=== PATIENT | male | born 1990 | race Caucasian/White ===

== ENCOUNTER 2020-12-07 10:33 | Inpatient (IN) | payer SELFPAY ==
[2020-12-07] VITALS (8 sets, daily range): BP systolic 118–150; BP diastolic 83–103; PULSE 61–95; RESP 16; TEMP 36.5–36.7; O2SAT 96–99; BMI 22.9
--- NOTE | 2020-12-07 11:33 | CT_ITS ---
WS: [id number] CT ABDOMEN AND PELVIS WITH CONTRAST HISTORY: abdominal pain. Bloody diarrhea TECHNIQUE: Imaging performed of the abdomen and pelvis with IV contrast. Single phase imaging of the abdomen. Coronal and sagittal reformats are submitted. All CT scans at [facility] use at least one of these dose optimization techniques: automated exposure control; mA and/or kV adjustment per patient size (includes targeted exams where dose is matched to clinical indication); or iterativ e reconstruction. IV CONTRAST: Omnipaque 300; 95 mL IV. Oral contrast: No DLP: 1146.33 mGy.cm COMPARISON: 05/13/2019 Lower thorax: Lung bases are clear. Heart is normal size. No hiatal hernia. Liver/biliary system: Marked hepatic steatosis. The liver is also mildly enlarged. No mass or bile du ct dilatation. Gallbladder: Normal. No gallstones or wall thickening. No pericholecystic fluid. Pancreas: Normal. Spleen: Normal. Adrenal glands: Normal. Right kidney: Normal. Left kidney: Normal. Aorta: Normal. Lymphadenopathy: None. Free fluid: None. GI tract: Moderate mucosal edema involving the ascending colon. Sparing of the transverse colon. Avtar a begins again the splenic flexure to the sigmoid. There is increase fluid in the rectum. No small todd wel obstruction. The appendix is partially visualized and normal. Terminal ileum is slightly narrowed and slightly hyperemic. New finding since 05/13/2019. Abdominal wall: Unremarkable abdominal wall. No hernia. Pelvis: Normally distended bladder. No free fluid in the pelvis. No adenopathy. Bones: Unremarkable. CT/CT abdomen pelvis w con* [id number] IMPRESSION: 1. Moderate mucosal thickening involving the ascending and descending colon wi th increased fluid in the rectum and mild hyperemia of the terminal ileum. Infl ammatory bowel disease such as Crohn's should be considered. 2. Diffuse hepatic steatosis has progressed since 05/13/2019. 3. No GI tract obstruction or free air. 4. Incompletely visualized appendix.
[2020-12-07] MEDS: iohexol 300 mg/mL 100 mL Btl IV (11:45)
[2020-12-07 11:47] LABS: Basophils # 0.1 10^3/uL (0.0-0.1); Basophils % 1.1 %; Eosinophils % 0.9 %; Hematocrit 45.7 % (42.0-52.0); Hemoglobin 16.1 g/dL (11.7-16.6); Lymphocytes # 1.8 10^3/uL (0.8-4.8); Lymphocytes % 39.9 %; Mean Corpuscular HGB Conc 35.2 g/dL (30.0-36.0); Mean Corpuscular Hemoglobin 35.2 pg (28.0-34.0); Mean Corpuscular Volume 99.8 fL (80-94); Mean Platelet Volume 11.7 fL (7.4-10.4); Monocytes # 0.3 10^3/uL (0.2-0.9); Monocytes % 7.4 %; Neutrophils # 2.24 10^3/uL (1.8-7.7); Neutrophils % 50.5 %; Nucleated Red Blood Cells % 0 %; Platelet Count 163 10^3/cmm (130-400); Red Blood Count 4.58 10^6/uL (4.1-5.3); Red Cell Distribution Width 12.8 % (12.1-15.1); White Blood Count 4.4 10^3/uL (4.0-10.0)
[2020-12-07] MEDS: ondansetron 2 mg/ML SDV 2 mL 4 MG IVP (12:03)
[2020-12-07] MEDS: ketorolac 30 mg/mL INJ 15 MG IVP (12:06)
--- NOTE | 2020-12-07 12:06 | ED_ITS ---
HPI - GI Bleed General: Chief complaint: GI Bleed Stated complaint: ABD PAIN/blood in stool Time Seen by Provider: 12/07/20 11:10 History of Present Illness: HPI Narrative: The patient is a 30-year-old male who comes to the ER complaining of abdominal pain and some blood in his stool. He says approximately a month ago he thinks he had Covid and has not felt well since. He has had a 20 pound weight loss since then due to feelings of bloated abdomen, he does not feel hungry and he has had chronic abdominal pain. Over the past few days the pain has worsened and he says it is worst in his left lower quadrant. Denies history of hemorrhoids. He says he has had some constipated stools and took MiraLAX last night to help however it has not relieved his pain. He also admits nausea but no vomiting. Pain Consistency: constant Severity: moderate Relieving factors: none Associated symptoms: Reports abdominal pain and nausea; Denies headache(s), rash or vomiting Review of Systems General: Reports: 10 or more systems reviewed and unremarkable except in HPI and below Const: Denies: fatigue Eyes: Denies: change in vision, blurry vision or eye redness ENMT: Denies: throat pain, swelling of lips/tongue, ear or mastoid pain or nasal congestion Card: Denies: chest pain, palpitations, irregular heart rhythm, edema, dyspnea on exertion or orthopnea Resp: Denies: dyspnea, productive cough or non-productive cough GI: Reports: abdominal pain, nausea and constipation; Denies: vomiting or diarrhea : Denies: flank pain, urinary frequency or urinary urgency Musc: Denies: neck pain, back pain, extremity pain, joint pain, joint redness, limited range of motion or muscle weakness Skin/Breast: Denies: rash, pruritus, erythema, skin pain or skin tenderness Neuro: Denies: headache(s), numbness in extremities, weakness in extremities, sensory changes, difficulty walking, dizziness, confusion or Slurred speech present Psych: Denies: anxiety or depression Endo: Denies: polyuria All/Imm: Denies: urticaria, throat swelling or tongue swelling PFSH ED PFSH: Medical History Daily consumption of alcohol Dermatitis Smoking addiction Surgical History No significant past surgical history Family History Grandmother Hx of cholecystectomy Social History Smoking and tobacco status: current every day smoker cigarettes Packs smoked per day: 1 Alcohol intake: current Alcohol intake frequency: 0-2 Drinks per Day Substance/Drug Use: never Lives independently: Yes Marital status: Current occupational status: employed Physical Exam 2 Const: COMMON NORMALS: no acute distress, average body habitus, patient oriented x3, no limitations, healthy appearing, alert and well nourished GENERAL APPEARANCE: cooperative, comfortable, well kempt and well developed ORIENTATION/CONSCIOUSNESS: Yes awake, Yes oriented to person, Yes oriented to place and Yes oriented to time HENMT: COMMON NORMALS: normocephalic, external ears normal and Normal external nose present HEAD & SCALP: normal to inspection and normocephalic NOSE: Normal external nose present EXTERNAL EAR: Yes external ears normal MOUTH: Normal oral and palatal mucosa present THROAT: posterior oropharynx normal Eye: COMMON NORMALS: Equal, round and reactive pupils present and EOMs intact bilaterally GENERAL EYE: appearance normal, both eyes and all related structures PUPIL: Yes Equal, round and reactive pupils present Neck/C-Spine: COMMON NORMALS: full ROM, no lymphadenopathy, no meningeal signs and no JVD GENERAL: Yes normal visual inspection Lymph: LYMPHATIC: no lymphadenopathy noted Chest: COMMONS NORMALS: normal inspection of the chest and normal palpation of entire chest wall Resp: COMMON NORMALS: normal respiratory effort, No retractions, No use of accessory muscles, clear to auscultation bilaterally and percussion normal EFFORT & INSPECTION: Yes able to speak in complete sentences AUSCULTATION: clear to auscultation bilaterally PERCUSSION: percussion normal Cardio: COMMON NORMALS: no JVD, regular rate, regular rhythm, S1 normal heart sound present, S2 normal heart sound present and Peripheral pulses 2+ throughout RATE: regular rate RHYTHM: regular rhythm HEART SOUNDS: S1 normal heart sound present and S2 normal heart sound present PERIPHERAL PULSES: Peripheral pulses 2+ throughout GI: COMMON NORMALS: Normal to inspection, nondistended, normoactive bowel sounds present, Soft to palpation and no masses INSPECTION: Yes normal to inspection PALPATION: Yes Soft to palpation and Yes Tenderness to palpation present (GI) OTHER: He has tenderness in all abdominal quadrants. It is worst in the left lower quadrant. Soft. No rebound tenderness. : COMMON NORMALS: Yes no CVA tenderness BLADDER/KIDNEY EXAM: Yes no CVA tenderness Back/Pelvis: COMMON NORMALS: no CVA tenderness, thoracic and lumbar spine normal to inspection, no thoracic nor lumbar tenderness and thoraco-lumbar ROM normal Extremity: COMMON NORMALS: normal to inspection, full ROM, capillary refill normal, no joint enlargement and no pedal edema GENERAL: Yes normal exam except as noted Neuro: COMMON NORMALS: patient oriented x3, CN's II-XII intact bilaterally, moves all extremities, no focal motor deficits, no sensory deficits noted and gait normal SENSORIUM/ORIENTATION: Yes alert, Yes oriented to person, Yes oriented to place and Yes oriented to time MENINGEAL SIGNS: Yes no meningeal signs Psych: COMMON NORMALS: mental status grossly normal, Normal thought process present, cooperative, normal affect and speech normal APPEARANCE: Yes well kempt ATTITUDE: Yes calm SPEECH: Yes normal speech THOUGHT PROCESS: Normal thought process present Skin: COMMON NORMALS: no rashes or lesions noted GENERAL SKIN EXAM: no rashes or lesions noted Course Vital Signs: Vital signs: Vital Signs Temperature 97.7 F 12/07/20 10:47 Pulse Rate 61 12/07/20 15:10 Respiratory Rate 16 12/07/20 10:47 Blood Pressure 118/83 12/07/20 15:10 Pulse Oximetry 98 12/07/20 15:10 MDM - GI Bleed MDM Narrative: Medical decision making narrative: Patient came to the ER complaining of severe abdominal pain. CT shows moderate thickening of the ascending and descending colon as well as hyperemia in the distal ileum. It is not diagnostic but suggestive of Crohn's disease. He does have a family history of Crohn's disease. Also his LFTs are elevated. He was given Cipro, Flagyl, and started with [address]iscuss[address] with Dr. Soto who recommended against scoping this patient with an acute infection and follow-up outpatient. Discussed with Dr. Mehta who accepts for observation. Lab Data: Labs: Lab Results 12/07/20 12/07/20 12/07/20 Range/Units 11:37 11:37 11:37 WBC 4.4 (4.0-10.0) 10^3/ uL RBC 4.58 (4.1-5.3) 10^6/u L Hgb 16.1 (11.7-16.6) g/dL Hct 45.7 (42.0-52.0) % MCV 99.8 H (80-94) fL MCH 35.2 H (28.0-34.0) pg MCHC 35.2 (30.0-36.0) g/dL RDW 12.8 (12.1-15.1) % Plt Count 163 (130-400) 10^3/c mm MPV 11.7 H (7.4-10.4) fL Neut % (Auto) 50.5 % Lymph % (Auto) 39.9 % Grimes % (Auto) 7.4 % Eos % (Auto) 0.9 % Baso % (Auto) 1.1 % Neut # (Auto) 2.24 (1.8-7.7) 10^3/u L Lymph # (Auto) 1.8 (0.8-4.8) 10^3/u L Grimes # (Auto) 0.3 (0.2-0.9) 10^3/u L Eos # (Auto) 0.0 (0.0-0.8) 10^3/u L Baso # (Auto) 0.1 (0.0-0.1) 10^3/u L Nucleated RBC % (a uto) 0 % Nucleated RBCs # 0.0 /100WBC ESR (0-10) mm/hr Sodium 132 L (136-145) mmol/L Potassium 3.9 (3.5-5.1) mmol/L Chloride 93 L (98-107) mmol/L Carbon Dioxide 27 (22-29) mmol/L Anion Gap 15.9 (5-19) BUN 13 (6-20) mg/dL Creatinine 1.0 (0.7-1.2) mg/dL GFR Calculation 86.6 L (90-130) mL/min Glucose 101 (65-115) mg/dL Calculated Osmolal ity 274 L (285-295) mOsm/k g Lactate 2.0 (0.5-2.2) mmol/L Calcium 8.3 L (8.5-10.5) mg/dL Total Bilirubin 1.8 H (0.15-1.2) mg/dL AST 567 H (0-40) U/L ALT 345 H (0-41) U/L Alkaline Phosphata se 274 H (40-130) IU/L C-Reactive Protein (0.0-4.9) mg/L Total Protein 7.8 (6.6-8.7) g/dL Albumin 4.0 (3.5-5.2) g/dL Globulin 3.8 (1.3-4.6) g/dL Lipase 55 (13-60) U/L Urine Color (Yellow) Urine Appearance (CLEAR) Urine pH (5-7) Ur Specific Gravit y (1.005-1.030) Urine Protein (Negative) Urine Glucose (UA) (Normal) Urine Ketones (Negative) Urine Blood (Negative) Urine Nitrate (Negative) Urine Bilirubin (Negative) Prot Sulfosalicyli c Acd (Negative) Urine Urobilinogen (Negative) mg/dL Ur Leukocyte Ceci ase (Negative) 12/07/20 12/07/20 12/07/20 Range/Units 11:37 11:37 12:17 WBC (4.0-10.0) 10^3/ uL RBC (4.1-5.3) 10^6/u L Hgb (11.7-16.6) g/dL Hct (42.0-52.0) % MCV (80-94) fL MCH (28.0-34.0) pg MCHC (30.0-36.0) g/dL RDW (12.1-15.1) % Plt Count (130-400) 10^3/c mm MPV (7.4-10.4) fL Neut % (Auto) % Lymph % (Auto) % Grimes % (Auto) % Eos % (Auto) % Baso % (Auto) % Neut # (Auto) (1.8-7.7) 10^3/u L Lymph # (Auto) (0.8-4.8) 10^3/u L Grimes # (Auto) (0.2-0.9) 10^3/u L Eos # (Auto) (0.0-0.8) 10^3/u L Baso # (Auto) (0.0-0.1) 10^3/u L Nucleated RBC % (a uto) % Nucleated RBCs # /100WBC ESR 13 H (0-10) mm/hr Sodium (136-145) mmol/L Potassium (3.5-5.1) mmol/L Chloride (98-107) mmol/L Carbon Dioxide (22-29) mmol/L Anion Gap (5-19) BUN (6-20) mg/dL Creatinine (0.7-1.2) mg/dL GFR Calculation (90-130) mL/min Glucose (65-115) mg/dL Calculated Osmolal ity (285-295) mOsm/k g Lactate (0.5-2.2) mmol/L Calcium (8.5-10.5) mg/dL Total Bilirubin (0.15-1.2) mg/dL AST (0-40) U/L ALT (0-41) U/L Alkaline Phosphata se (40-130) IU/L C-Reactive Protein 0.7 (0.0-4.9) mg/L Total Protein (6.6-8.7) g/dL Albumin (3.5-5.2) g/dL Globulin (1.3-4.6) g/dL Lipase (13-60) U/L Urine Color Yellow (Yellow) Urine Appearance Clear (CLEAR) Urine pH 9 H (5-7) Ur Specific Gravit y 1.015 (1.005-1.030) Urine Protein Neg (Negative) Urine Glucose (UA) Norm (Normal) Urine Ketones Negative (Negative) Urine Blood Neg (Negative) Urine Nitrate Negative (Negative) Urine Bilirubin Neg (Negative) Prot Sulfosalicyli c Acd Negative (Negative) Urine Urobilinogen Norm (Negative) mg/dL Ur Leukocyte Ceci ase Negative (Negative) Discharge Plan Discharge Patient Disposition: Placed in Observation Admit Provider: Jose Mehta Clinical Impression: Acute colitis Coding Level of Care Code ED Neuropsychiatric Aide for Chg Fwd Exam Comprehensive
[2020-12-07] MEDS: sodium chloride 0.9% 1,000 ML 999 ML IV (12:11)
[2020-12-07 12:25] LABS: Add Urine Microscopic? NO; Charge for UA Resulting for Rev
[2020-12-07 12:31] LABS: Alkaline Phosphatase 274 IU/L (40-130); Blood Urea Nitrogen 13 mg/dL (6-20); Calcium 8.3 mg/dL (8.5-10.5); Carbon Dioxide 27 mmol/L (22-29); Chloride 93 mmol/L (98-107); Globulin 3.8 g/dL (1.3-4.6); Glomerular Filtration Rate 86.6 mL/min (90-130); Glucose 101 mg/dL (65-115); Lipase 55 U/L (13-60); Osmolality Calculated 274 mOsm/kg (285-295); Sodium 132 mmol/L (136-145); Total Bilirubin 1.8 mg/dL (0.15-1.2); Total Protein 7.8 g/dL (6.6-8.7)
[2020-12-07 12:32] LABS: Anion Gap 15.9 (5-19); Potassium 3.9 mmol/L (3.5-5.1)
[2020-12-07 12:38] LABS: Bilirubin Urine Neg (Negative); Blood Urine Neg (Negative); Glucose Urine UA Norm (Normal); Ketones Urine Negative (Negative); Leukocyte Esterase Urine Negative (Negative); Nitrate Urine Negative (Negative); Protein Urine Neg (Negative); Specific Gravity, Urine 1.015 (1.005-1.030); Sulfosalicylic Acid Urine Negative (Negative); Urine Appearance Clear (CLEAR); Urine Color Yellow (Yellow); Urobilinogen Urine Norm (Negative); pH Urine 9 (5-7)
[2020-12-07 12:43] LABS: Alanine Aminotransferase 345 U/L (0-41); Aspartate Amino Transferase 567 U/L (0-40)
[2020-12-07 13:07] LABS: C Reactive Protein 0.7 mg/L (0.0-4.9)
[2020-12-07] MEDS: dexamethasone 10 mg/mL INJ IVP (14:01)
[2020-12-07] MEDS: metroNIDAZOLE IV 500 MG/100 ML PREMIX 100 MG IV ×2 (14:01→22:17)
[2020-12-07] MEDS: ciprofloxacin 400 MG/200 ML PREMIX 200 MG IV (14:01)
[2020-12-07 14:10] LABS: Erythrocyte Sedimentation Rate 13 mm/hr (0-10)
--- NOTE | 2020-12-07 14:59 | P.HP_ITS ---
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, previously on prednisone for several months prescribed by his development lead, with rash is going away after switching brands of soap, current smoker, but no other chronic medical issues, having gone through COVID-19 a month ago symptomatic mostly with nausea and stomach upset, presented to ER due to progressively worsening GI symptoms, with nausea, some recurrent vomiting for almost a month, with weight loss, abdominal bloating and discomfort, but in the last several days progressing to pain, with vomiting, due to which he thought he was constipated, took magnesium, and subsequently developed diarrhea, and noticed some streaks of blood in the stool. He denies history of recurrent abdominal problems previously. Denies history of autoimmune conditions or IBD in his family. In the ER he is afebrile, without leukocytosis. Hemoglobin 16.1. Platelets 163. Sodium 132. Chloride 93. Bicarbonate 27. BUN 13, creatinine 1. Calcium 8.3. T bili 1.8. AST 567. ALT 345. Alk phos 274. CRP 0.7. Urinalysis unremarkable. CT abdomen pelvis was obtained with finding of moderate mucosal thickening involving the ascending and descending colon with increased fluid in the rectum and mild hyperemia of the terminal ileum. Recommended consideration of IBD. Also noted diffuse hepatic steatosis progressed since 05/13/2019. No obstruction or free air. Incompletely visualized appendix. In ER he was given ciprofloxacin, Flagyl, Decadron, Zofran, ketorolac and an IV fluid bolus. Placement is requested in observation due to persistent/progressive worsening of symptoms and imaging findings of multifocal or extensive colitis of unclear etiology. He understands gastroenterology subspecialty is unavailable at this facility. He is agreeable to initiate assessment and treatment here with further consideration of follow-up depending on his condition and additional findings. Review of Systems Const: Reports: change in appetite and change in weight; Denies: fever(s), chills, body aches or malaise Eyes: Denies: change in vision or eye redness ENMT: Denies: throat pain, oral sores or ear or mastoid pain Card: Denies: chest pain, edema, pre-syncope or dyspnea on exertion Resp: Denies: dyspnea, productive cough, change in phlegm color or hemoptysis GI: Reports: abdominal pain, nausea, vomiting, diarrhea and hematochezia; Denies: constipation or melena : Denies: flank pain, difficulty urinating, urinary frequency or hematuria Musc: Denies: back pain, joint swelling or joint redness Skin/Breast: Denies: rash, sores or new lesions Neuro: Denies: headache(s), numbness in extremities, weakness in extremities, dizziness, confusion or seizure-like activity Endo: Denies: polyuria or polydipsia Pietro/Lymph: Denies: easy bleeding or purpura All/Imm: Denies: urticaria, throat swelling or tongue swelling Medications/Allergies Home Medications Medication Instructions Recorded Confirmed Last Taken Type multivit,calc,[id number] 1 tab PO DAILY 12/07/20 12/07/20 12/06/20 History [One-A-Day Men's Complete] Allergies Allergy/AdvReac Type Severity Reaction Status Date / Time No Known Allergies Allergy Verified 12/07/20 10:50 PFSH Acute PFSH: Medical History Dermatitis Surgical History No significant past surgical history Family History Grandmother Hx of cholecystectomy Social History Smoking and tobacco status: current every day smoker cigarettes Packs smoked per day: 1 Alcohol intake: current Alcohol intake frequency: 0-2 Drinks per Day Substance/Drug Use: never Lives independently: Yes Marital status: Current occupational status: employed Vitals/I&O/Wt Last Vital Signs Temp 97.7 F 12/07/20 10:47 Pulse 86 12/07/20 14:06 Resp 16 12/07/20 10:47 BP 147/103 12/07/20 14:06 Pulse Ox 99 12/07/20 14:06 12/06/20 12/07/20 12/07/20 22:59 06:59 14:59 Intake Total 1000 / 1000 Balance 1000 / 1000 Weight last 48 hrs Weight 72.575 kg Physical Exam Const: COMMON NORMALS: no acute distress and patient oriented x3 HENMT: COMMON NORMALS: oropharynx normal Neck/C-Spine: COMMON NORMALS: no JVD Resp: COMMON NORMALS: normal respiratory effort and clear to auscultation bilaterally AUSCULTATION: clear to auscultation bilaterally Cardio: COMMON NORMALS: no JVD, regular rhythm, S1 normal heart sound present, S2 normal heart sound present and No murmurs present (Cardio) RHYTHM: regular rhythm HEART SOUNDS: S1 normal heart sound present and S2 normal heart sound present GI: COMMON NORMALS: Normal to inspection, nondistended, normoactive bowel sounds present and Soft to palpation PALPATION: Yes Soft to palpation and Yes Tenderness to palpation present (GI) (Worst in left lower quadrant) Extremity: COMMON NORMALS: no joint enlargement and no pedal edema Neuro: COMMON NORMALS: patient oriented x3 and moves all extremities Skin: COMMON NORMALS: no rashes or lesions noted GENERAL SKIN EXAM: no rashes or lesions noted Data : 12/07/20 11:37 12/07/20 11:37 A&P Assessment and plan (1) Acute colitis: Acute colitis with abdominal pain especially last several days, no bowel movement until took magnesium, subsequently diarrhea, containing some blood. Nausea for close to a month, poor appetite. Weight loss. Discussed with him number of different possible etiologies. Possibility of infectious colitis, possible inflammatory colitis, less likely ischemic colitis. Inflammatory colitis considered by imaging, however, his CRP and ESR truly are not elevated. Has no history of recurrent colitis, no history of IBD in the family. He is aware we do not have a steel unloader in house, however, also is agreeable to rule out infectious causes of colitis, as well as treating empirically for such with antibiotics for now. Will also additionally request assessment for autoantibodies. Therapy may be adjusted depending on response possibly to include steroids, although for now we will not continue steroids just yet. After acute episode he agrees to follow-up with gastroenterology for additional assessment, currently with acute inflammation and scope evaluation is thought to be risky, but he would benefit from assessment once acute episode subsides. We will provide IV hydration. Bowel rest, only clear liquids as tolerating for now. Symptomatic management of pain, nausea. Stool studies requested. Blood in stool makes celiac much less likely. Status: Acute (2) Transaminitis: Discussed with him unclear etiology of transaminitis. May be related to acute process, possibly infectious colitis, possibility of inflammatory colitis considered. He denies NSAID, Tylenol use. He does have about 2 beers a day daily and has had them up until he got significantly more ill several days ago when he stopped. Possibility of alcoholic hepatitis considered. We also considered infectious hepatitis. Will assess hepatitis panel. Albumin is 4. We will check PT/INR. Check acetaminophen level. Assess hepatobiliary ultrasound. Status: Acute (3) Hematochezia: Secondary to colitis as above. Monitor for persistent hematochezia, GI bleeding, monitor hemoglobin. Avoid pharmacologic VTE prophylaxis for now, SCD only. Status: Acute (4) Nausea and vomiting: Possibly related to colitis, has had nausea some persistent ever since COVID-19 a month ago. Apart from the acute colitis, gastritis, possibly secondary to EtOH may be considered as well. We will add famotidine IV. Zofran as needed. Bowel rest. Clear liquids as tolerating. He is a current smoker, and once he is out of acute episode may benefit from additional follow-up by endoscopic evaluation. Status: Acute (5) Weight loss: Reported 20 pound weight loss. Currently treat colitis. He is also recently recovering after COVID-19. Apart from that we will need additional evaluation by endoscopy. Follow-up with GI. Continue additional assessment for possibility of autoimmune condition. Status: Acute (6) History of COVID-19: A month ago. Status: Acute (7) Smoking addiction: Encourage smoking cessation. Discussed with him. We will provide nicotine patches, gum as needed for cravings. Status: Acute (8) Daily consumption of alcohol: This is with him regarding abstinence from alcohol entirely due to noted fatty liver infiltration, hepatomegaly, risk of progression to fibrosis and ci rrhosis. There is also possibility of alcohol-related hepatitis, gastritis. He had stopped recently several days ago when he started feeling unwell. Monitor for withdrawal. Status: Acute (9) Fatty infiltration of liver: Discussed with him. Will need additional follow-up. Should abstain entirely from alcohol is even small amounts may lead to progression to fibrosis or cirrhosis. He verbalized understanding. He will need additional follow-up and evaluation after acute episode of illness. Status: Acute Attestations Medical Necessity Statement*: Place in observation for assessment management of acute colitis with progressively worsening symptoms, recurrent nausea and vomiting, lack of oral intake, hematochezia. Coding Level of Care Code Acute Precision Lens Centerer And Edger for Lily Gonzalez Diagnoses Acute colitis K52.9 Transaminitis R74.01 Hematochezia K92.1 Nausea and vomiting R11.2 Weight loss R63.4 History of COVID-19 Z86.16 Smoking addiction F17.200 Daily consumption of alcohol Z78.9 Fatty infiltration of liver K76.0
[2020-12-07] MEDS: famotidine 20 mg/2 mL INJ IVP (16:38)
[2020-12-07] MEDS: nicotine 21 mg Patch 1 PATCH TRANSDERMA (16:38)
[2020-12-07] MEDS: lactated ringers 1,000 ML 100 ML IV (16:39)
[2020-12-07 16:50] LABS: Acetaminophen < 5.0 ug/mL (10-30)
[2020-12-07 17:18] LABS: Hepatitis A Antibody IgM Non-Reactive (Nonreactive); Hepatitis B Core IgM Non-Reactive (Nonreactive); Hepatitis B Surface Antigen Non-Reactive (Nonreactive); Hepatitis C Virus Antibody Non-Reactive (Nonreactive)
[2020-12-07 17:27] LABS: INR 1.01 (0.8-1.2)
[2020-12-08] VITALS (8 sets, daily range): BP systolic 114–128; BP diastolic 69–79; PULSE 61–96; RESP 16–18; TEMP 36.1–37.2; O2SAT 95–98
[2020-12-08] MEDS: HYDROmorphone 1 mg/mL INJ 1 mL 0.4 MG IVP (00:12)
[2020-12-08] MEDS: ciprofloxacin 400 MG/200 ML PREMIX 200 MG IV ×2 (00:13→12:47)
[2020-12-08] MEDS: lactated ringers 1,000 ML 100 ML IV ×2 (04:53→15:34)
[2020-12-08] MEDS: famotidine 20 mg/2 mL INJ IVP ×2 (04:56→15:34)
--- NOTE | 2020-12-08 05:00 | US_ITS ---
WS: [id number] RIGHT UPPER QUADRANT ULTRASOUND HISTORY: Hepatobiliary, transaminitis, cholestasis COMPARISON: 11/08/[address] 12/07/2020 Liver: 21.8 cm in length. Enlarged liver with mild hepatic steatosis. No bile duct dilatation or mass . Gallbladder: Normally distended gallbladder with no stones or wall thickening. CBD: 0.3 cm Pancreas: Normal size and echogenicity. Right kidney: 10.6 cm in length. Normal size and echogenicity. No hydronephrosis or mass. Aorta and IVC: Unremarkable abdominal aorta and IVC. No ascites. US/US abdomen limited [id number] IMPRESSION: 1. Normal gallbladder. 2. Moderate hepatomegaly and hepatic steatosis.
[2020-12-08] MEDS: metroNIDAZOLE IV 500 MG/100 ML PREMIX 100 MG IV ×3 (05:15→21:54)
[2020-12-08 06:32] LABS: Basophils % 0.3 %; Hematocrit 37.3 % (42.0-52.0); Hemoglobin 12.9 g/dL (11.7-16.6); Lymphocytes # 0.8 10^3/uL (0.8-4.8); Lymphocytes % 25.5 %; Mean Corpuscular HGB Conc 34.6 g/dL (30.0-36.0); Mean Corpuscular Hemoglobin 34.4 pg (28.0-34.0); Mean Corpuscular Volume 99.5 fL (80-94); Mean Platelet Volume 12.4 fL (7.4-10.4); Monocytes # 0.2 10^3/uL (0.2-0.9); Monocytes % 5.8 %; Neutrophils # 2.21 10^3/uL (1.8-7.7); Neutrophils % 68.1 %; Nucleated Red Blood Cells % 0 %; Platelet Count 133 10^3/cmm (130-400); Red Blood Count 3.75 10^6/uL (4.1-5.3); Red Cell Distribution Width 12.1 % (12.1-15.1); White Blood Count 3.3 10^3/uL (4.0-10.0)
[2020-12-08 07:05] LABS: Alanine Aminotransferase 244 U/L (0-41); Albumin Level 3.3 g/dL (3.5-5.2); Alkaline Phosphatase 216 IU/L (40-130); Anion Gap 17.5 (5-19); Aspartate Amino Transferase 389 U/L (0-40); Blood Urea Nitrogen 11 mg/dL (6-20); Carbon Dioxide 23 mmol/L (22-29); Chloride 97 mmol/L (98-107); Globulin 2.9 g/dL (1.3-4.6); Glomerular Filtration Rate 97.8 mL/min (90-130); Glucose 92 mg/dL (65-115); Osmolality Calculated 275 mOsm/kg (285-295); Potassium 4.5 mmol/L (3.5-5.1); Sodium 133 mmol/L (136-145); Total Protein 6.2 g/dL (6.6-8.7)
--- NOTE | 2020-12-08 11:06 | PC.CHAP ---
Pastoral Care Encounter/Spiritual Assessment Type of Contact [] Declined welder/fitter visit [] Patient/Family/Request visit [] Outpatient visit [] Follow-up visit [] Physician referral [] Code/Alert [x] Routine visit [] Staff referral [] Actively dying [] Patient sleeping [] Family support [] [] Out of room [] Palliative care [] [x] Receiving care in room [] Pre-surgical visit [] Trauma [] Long length of stay [] ICU visit [] Other: Relational/Emotional Strength [x] Patient feels connected with others/family/visitors/staff [] Distress [] Loneliness/isolation [] Abandonment Spirituality of Patient [x] Person of Jacqueline [] Attends Mormon of their Jacqueline [x] Believes in Prayer [] Reads Bible or Baptist materials [] There are Spiritual issues to be addressed Reimbursement Spec Interventions [x] Prayer [x] Active listening [x] Non-anxious presence [x] Spiritual/emotional support [] Crisis/trauma care [x] Spiritual counseling [] Bereavement support [] Provided bereavement packet [] Provided Bible/devotional materials [] Provided toy/stuffed animal, coloring book to patient or family member [] Provided Communion [] Anointing/[place] [] Salvation [x] Completed spiritual assessment [] Other: Impact on Illness or Injury [] Angry [] Fearful [] Anxious [] Often cries [] Exhaustion [] Unable to work [] Unable to attend hindu [] Unable to walk/stand [] Unable to read [] Unable to drive [] Unable to eat/drink [] Unable to sleep [] Unable to be with family [] Patient intubated [] Other: Summary needs more tests doesn't know what is wrong seems optimissetic, good has a good attitude Time spent with patient 10 mins
[2020-12-08] MEDS: nicotine 21 mg Patch 1 PATCH TRANSDERMA (15:32)
--- NOTE | 2020-12-08 18:54 | PC.NURSE ---
pt stated no pain today, no N/V, and tolerating clear liquids good. pt had 2 bowel movements.
--- NOTE | 2020-12-08 19:25 | PM.PN ---
Subjective Subjective: Interval history: Today he is feeling somewhat better. Still abdominal discomfort, pain is gone. He is feeling hungry. Vitals/I&O/Wt Last Vital Signs Temp 98.6 F 12/08/20 19:16 Pulse 80 12/08/20 19:16 Resp 16 12/08/20 19:16 BP 117/72 12/08/20 19:16 Pulse Ox 98 12/08/20 19:16 12/08/20 12/08/20 12/08/20 06:59 14:59 22:59 Intake Total 1400 / 2940 1000 / 1000 300 / 1300 Output Total 0 / 0 550 / 550 Balance 1400 / 2940 450 / 450 300 / 750 Weight last 48 hrs Weight 76.702 kg Weight 72.575 kg Physical Exam Const: COMMON NORMALS: no acute distress and patient oriented x3 HENMT: COMMON NORMALS: oropharynx normal Neck/C-Spine: COMMON NORMALS: no JVD Resp: COMMON NORMALS: normal respiratory effort and clear to auscultation bilaterally AUSCULTATION: clear to auscultation bilaterally Cardio: COMMON NORMALS: no JVD, regular rhythm, S1 normal heart sound present, S2 normal heart sound present and No murmurs present (Cardio) RHYTHM: regular rhythm HEART SOUNDS: S1 normal heart sound present and S2 normal heart sound present GI: COMMON NORMALS: Normal to inspection, nondistended, normoactive bowel sounds present and Soft to palpation PALPATION: Yes Soft to palpation and Yes Tenderness to palpation present (GI) (Worst in left lower quadrant) Extremity: COMMON NORMALS: no joint enlargement and no pedal edema Neuro: COMMON NORMALS: patient oriented x3 and moves all extremities Skin: COMMON NORMALS: no rashes or lesions noted GENERAL SKIN EXAM: no rashes or lesions noted Data : 12/08/20 05:17 12/08/20 05:17 Micro: Microbiology 12/07/20 12:34 Stool Lactoferrin - Final Stool A&P Assessment and plan (1) Acute colitis: Becoming leukopenic today. WBC count 3.3. Other markers of sepsis absent. Symptomatically he appears to be doing slightly better. Abdominal pain has abated. Some discomfort present. He is feeling hungry. During my visit has not had a bowel movement, but appears later has, collected for stool studies. Pending. Liver ultrasound shows normal gallbladder. Moderate hepatomegaly and hepatic steatosis. With still as of yet unestablished etiology of colitis, now with new leukopenia, will additionally treat with antibiotic in the hospital given persistent abdominal pain. Overall he is, hopefully showing improvement, and will reassess again tomorrow. Follow-up stool studies. Again discussed with him follow-up with gastroenterology after discharge and he is agreeable. Follow-up ANCA, ASCA. Status: Acute (2) Transaminitis: With mild improvement in AST and ALT, worsening T bili. Abdominal symptoms better today. Suspect alcohol-related hepatitis, as opposed to same etiology as responsible for his colitis. Possibly viral. Acute hepatitis panel was negative, however. Normal gallbladder on ultrasound. Recheck CMP in the morning. Will need follow-up for resolution and additional assessment for other possible etiologies in case of persistence. Reinforce abstinence from alcohol. May be related to acute process, possibly infectious colitis, possibility of inflammatory colitis considered. He denies NSAID, Tylenol use. He does have about 2 beers a day daily and has had them up until he got significantly more ill several days ago when he stopped. Albumin is 4. Normal INR. Negative acetaminophen. Status: Acute (3) Hematochezia: Acute decrease in hemoglobin from 16.1-12.9. So far this morning he had not had repeat bowel movement. Hematochezia appears to have resolved. Bowel movement later in the day. Repeat CBC in the morning. Monitor for persistent hematochezia, GI bleeding. Avoid pharmacologic VTE prophylaxis for now, SCD only. Status: Acute (4) Nausea and vomiting: So far has improved. He requested trial of clear liquids. If doing well may advance further. Possibly related to colitis, has had nausea some persistent ever since COVID-19 a month ago. Apart from the acute colitis, gastritis, possibly secondary to EtOH may be considered as well. We will add famotidine IV. Zofran as needed. Clear liquids as tolerating. He is a current smoker, and once he is out of acute episode may benefit from additional follow-up by endoscopic evaluation. Status: Acute (5) Weight loss: Reported 20 pound weight loss. Currently treat colitis. He is also recently recovering after COVID-19. Apart from that we will need additional evaluation by endoscopy. Follow-up with GI. Continue additional assessment for possibility of autoimmune condition. Status: Acute (6) History of COVID-19: A month ago. Status: Acute (7) Smoking addiction: Encourage smoking cessation. Discussed with him. We will provide nicotine patches, gum as needed for cravings. Status: Acute (8) Daily consumption of alcohol: This is with him regarding abstinence from alcohol entirely due to noted fatty liver infiltration, hepatomegaly, risk of progression to fibrosis and cirrhosis. There is also possibility of alcohol-related hepatitis, gastritis. He had stopped recently several days ago when he started feeling unwell. Monitor for withdrawal. Reinforce abstinence. Status: Acute (9) Fatty infiltration of liver: Discussed with him. Will need additional follow-up. Should abstain entirely from alcohol is even small amounts may lead to progression to fibrosis or cirrhosis. He verbalized understanding. He will need additional follow-up and evaluation after acute episode of illness. Status: Acute Attestations Medical Necessity Statement*: Admission of over 2 midnights required for assessment management of acute colitis, acute anemia, acute EtOH related hepatitis, gastritis. Coding Level of Care Code Acute Public Services Assistant for Lily Gonzalez Diagnoses Acute colitis K52.9 Transaminitis R74.01 Hematochezia K92.1 Nausea and vomiting R11.2 Weight loss R63.4 History of COVID-19 Z86.16 Smoking addiction F17.200 Daily consumption of alcohol Z78.9 Fatty infiltration of liver K76.0
[2020-12-09] MEDS: ciprofloxacin 400 MG/200 ML PREMIX 200 MG IV (01:32)
[2020-12-09 03:03] VITALS: BP 126/80; PULSE 57; RESP 16; TEMP 36.8; O2SAT 99
[2020-12-09] MEDS: famotidine 20 mg/2 mL INJ IVP (03:50)
[2020-12-09] MEDS: lactated ringers 1,000 ML 100 ML IV (03:51)
[2020-12-09] MEDS: metroNIDAZOLE IV 500 MG/100 ML PREMIX 100 MG IV (05:38)
[2020-12-09 06:17] LABS: Basophils % 0.2 %; Eosinophils % 0.4 %; Hematocrit 39.4 % (42.0-52.0); Hemoglobin 13.4 g/dL (11.7-16.6); Lymphocytes # 2.2 10^3/uL (0.8-4.8); Lymphocytes % 39.8 %; Mean Corpuscular Volume 102.9 fL (80-94); Mean Platelet Volume 12.1 fL (7.4-10.4); Monocytes # 0.2 10^3/uL (0.2-0.9); Monocytes % 4.4 %; Neutrophils # 2.99 10^3/uL (1.8-7.7); Neutrophils % 54.8 %; Nucleated Red Blood Cells % 0 %; Platelet Count 118 10^3/cmm (130-400); Red Blood Count 3.83 10^6/uL (4.1-5.3); Red Cell Distribution Width 12.5 % (12.1-15.1); White Blood Count 5.5 10^3/uL (4.0-10.0)
[2020-12-09 06:37] LABS: Alanine Aminotransferase 292 U/L (0-41); Albumin Level 3.2 g/dL (3.5-5.2); Alkaline Phosphatase 197 IU/L (40-130); Anion Gap 10.2 (5-19); Aspartate Amino Transferase 550 U/L (0-40); Blood Urea Nitrogen 8 mg/dL (6-20); Calcium 8.1 mg/dL (8.5-10.5); Carbon Dioxide 30 mmol/L (22-29); Chloride 99 mmol/L (98-107); Globulin 2.9 g/dL (1.3-4.6); Glomerular Filtration Rate 77.6 mL/min (90-130); Glucose 100 mg/dL (65-115); Osmolality Calculated 278 mOsm/kg (285-295); Potassium 4.2 mmol/L (3.5-5.1); Sodium 135 mmol/L (136-145); Total Bilirubin 3.4 mg/dL (0.15-1.2); Total Protein 6.1 g/dL (6.6-8.7)
[2020-12-09 07:11] VITALS: BP 144/79; PULSE 68; RESP 16; TEMP 36.6; O2SAT 98
--- NOTE | 2020-12-09 08:17 | P.DS_ITS ---
Discharge Providers Date of Admission: 12/08/20 20:38 Date of Discharge: December 09, 2020 Attending Provider at Admission: Jose Mehta Attending Provider at Discharge: Jose Mehta Primary Care Provider: Sushant Lewis MD Diagnoses at Discharge Discharge Diagnosis (1) Acute colitis: Status: Acute (2) Transaminitis: Status: Acute (3) Hematochezia: Status: Acute (4) Nausea and vomiting: Status: Acute (5) Weight loss: Status: Acute (6) History of COVID-19: Status: Acute (7) Smoking addiction: Status: Acute (8) Daily consumption of alcohol: Status: Acute (9) Fatty infiltration of liver: Status: Acute Reason for Visit Reason for Visit: ABD PAIN Hospital Course Hospital Course Pleasant 30-year-old gentleman with remote history of dermatitis, current smoker, current daily EtOH intake of about 2 beers a day, a month earlier had gone through COVID-19 symptomatic mostly with nausea and stomach upset, was admitted from ER where he presented with abdominal pain, after having intermittent nausea, sometimes vomiting over the month following COVID-19, also reported weight loss, and more recently abdominal bloating, discomfort, few days preceding admission with abdominal pain, vomiting. He thought this was due to constipation took magnesium, subsequently developed diarrhea with noted streaks of blood in stool. Denies history of recurrent abdominal problems previously. Denies history of autoimmune conditions or IBD in self or family. He was afebrile, without leukocytosis, hemoglobin 16.1, platelets 163, sodium 132, chloride 93, bicarbonate 27, BUN 13, creatinine 1. Calcium 8.3. T bili 1.8, AST 567, ALT 345, alk phos 274. CRP 0.7. ESR 13. Lipase 55. Urinalysis unremarkable. CT abdomen pelvis was obtained with finding of moderate mucosal thickening involving the ascending and descending colon with increased fluid in the rectum and mild hyperemia of the terminal ileum. Recommended consideration of IBD. Also noted diffuse hepatic steatosis progressed since 05/13/2019. No obstruction or free air. Incompletely visualized appendix. Treatment was started for infectious colitis, with plans to further assess for possibility of inflammatory colitis once it is safe to additionally assessed by endoscopic evaluation, with referral for gastroenterology follow-up. He was initially maintained on bowel rest, with IV hydration. Treated with ciprofloxacin, Levaquin. Stool studies were requested. We also requested for ANCA, ASCA which are pending. CRP is normal. Again as mentioned ESR is only minimally elevated, overall history does not suggest IBD, but by clinical presentation difficult to rule out. Also with liver parameter elevation of unclear etiology. All this was discussed with him. Hepatocellular injury may be similarly from the same process that is causing colitis. Alternatively could be also with contribution from daily EtOH. Nausea vomiting was from possible gastritis as well. He was started on famotidine. On 12/08 the following day he was feeling better, with abdominal pain subsiding, only discomfort, no further vomiting. Wanted to try some clear liquids. Acute infectious hepatitis panel was assessed and was negative. He was assessed by right upper quadrant ultrasound which was not suggestive of biliary disease, with normal gallbladder, moderate hepatomegaly and hepatic steatosis. Results discussed with him. He was counseled to abstain from alcohol. Other medications which may contribute to liver injury like NSAIDs. Acetaminophen level was checked and negative. INR was 1. Albumin 4. Liver parameters transiently improved on 12/08, AST down to 389, ALT down to 244. T bili up slightly to 2. Alk phos down to 216. Albumin down to 3.3. He seems to have tolerated clears. Stool studies were collected, but still are not back yet including for C. difficile, stool culture, ova and parasites. Lactoferrin was negative. This morning early he decided he would like to leave AGAINST MEDICAL ADVICE. Discussed with him we do not have yet the laboratory work-up and did not have the etiology of his multifocal colitis, as well as hepa tocellular injury. Also discussed with him worsening of liver parameters with AST up to 550. ALT up to 292. T bili up to 3.4. Alk phos down to 197. Albumin down to 3.2. He did not wish to wait to obtain the lab results or any additional work-up. He understands that he may have a potentially life- threatening not yet diagnosed condition which may worsen leading to severe disability or . He will be staying with his who will be keeping an eye on him. He is encouraged to come back anytime. Otherwise encouraged to follow-up with primary care provider and gastroenterology. He is asked to abstain from any alcohol. He is given prescription to complete for ciprofloxacin and Flagyl. Protonix. Physical Exam Const: COMMON NORMALS: no acute distress and patient oriented x3 OTHER: Fully dressed, walking out of his room. Fully alert. Conversant. States prefers to return home and cannot get any rest here. Declines there is anything else we could do differently to help him stay. Calm. With good insight. Stops briefly to discuss regarding incomplete work-up and discharge directions. HENMT: COMMON NORMALS: oropharynx normal Neck/C-Spine: COMMON NORMALS: no JVD Resp: COMMON NORMALS: normal respiratory effort Cardio: COMMON NORMALS: no JVD Neuro: COMMON NORMALS: patient oriented x3 and moves all extremities Discharge Data Data Completed and Pending: Completed Studies During Hospitalization Category Date Time Status CT abdomen pelvis w con* [id number] Stat Cat Scan 12/07/20 11:33 Com[place] lim[place] d [id number] Routine Ultrasound 12/08/20 05:00 Completed Pending at discharge Category Date Time Status Anti-Neutrophil C ytoplasmic AB Rout ine Lab 12/07/20 15:49 Received Clostridioides Di fficile PCR Routin e Lab 12/07/20 12:34 Received Complete Blood Co unt w/Auto AM LABS Lab 12/10/20 04:00 Ordered Comprehensive Met abolic Panel AM LA BS Lab 12/10/20 04:00 Ordered Enteric Bacterial Panel by PCR Rout ine Lab 12/07/20 12:34 Received Enteric Parasite Panel by PCR Routi ne Lab 12/07/20 12:34 Received Miscellaneous Anette t Routine Lab 12/07/20 15:49 Received Miscellaneous Anette t Routine Lab 12/08/20 15:45 Received Labs from last 24 hours 12/09/20 12/09/20 12/08/20 04:52 04:52 15:45 WBC 5.5 RBC 3.83 L Hgb 13.4 Hct 39.4 L MCV 102.9 H MCH 35.0 H MCHC 34.0 RDW 12.5 Plt Count 118 L MPV 12.1 H Neut % (Auto) 54.8 Lymph % (Auto) 39.8 [place] % (Auto) 4.4 Eos % (Auto) 0.4 Baso % (Auto) 0.2 Neut # (Auto) 2.99 Lymph # (Auto) 2.2 [place] # (Auto) 0.2 Eos # (Auto) 0.0 Baso # (Auto) 0.0 Nucleated RBC % (a uto) 0 Nucleated RBCs # 0.0 Sodium 135 L Potassium 4.2 Chloride 99 Carbon Dioxide 30 H Anion Gap 10.2 BUN 8 Creatinine 1.1 GFR Calculation 77.6 L Glucose 100 Calculated Osmolal ity 278 L Calcium 8.1 L Total Bilirubin 3.4 H AST 550 H ALT 292 H Alkaline Phosphata se 197 H Total Protein 6.1 L Albumin 3.2 L Globulin 2.9 Misc Test Referenc e Pending Vitals: Last Vital Signs Temp 97.8 F 12/09/20 07:11 Pulse 68 12/09/20 07:11 Resp 16 12/09/20 07:11 BP 144/79 12/09/20 07:11 Pulse Ox 98 12/09/20 07:11 Discharge Plan Discharge Patient Disposition: Left Against Medical Advice Condition: Fair Prescriptions: New ciprofloxacin HCl 500 mg tablet 500 mg PO BID 7 Days Qty: 14 RF: 0 Flagyl 500 mg tablet 500 mg PO Q8H 7 Days Qty: 21 RF: 0 pantoprazole 40 mg tablet,delayed release (DR/EC) 40 mg PO DAILY Qty: 30 RF: 0 Continued One-A-Day Men's Complete 240 mcg-30 mcg- 300 mcg Tablet 1 tab PO DAILY RF: 0 Discharge Orders: Discharge Order (Routine); Ordered 12/09/20 Ordered By: Jose Mehta Referrals: Sushant Lewis MD [Primary Care Provider] - 4-7 days (Please call [facility] and set up an appointment to see Dr. Joshua mcmulleniin the next week. ) Patient Instructions: Against Medical Advice (DC) Activity Restrictions/Additional Instructions: Please note that you are leaving the hospital prematurely. Your liver parameters are showing worsening today. We also have not yet received that r esult from the stool studies, and other laboratory work-up. You may have an as of yet undiagnosed potentially serious condition, progression of which or complications which could be disabling or life-threatening. We have not yet identified the cause of your colitis, progression which may be risking further gastrointestinal bleeding, bowel perforation, sepsis, septic shock, , as well as hepatitis, progression which may also be risking progression to liver failure, multiple organ failure and other serious complications. You are encouraged to reconsider and stay and resume your hospitalization. You are otherwise welcomed to come back anytime to the ER and resume your hospital stay that way. Otherwise please follow-up with your primary provider at soonest available appointment. Please abstain from any alcohol which even in small amounts will worsen hepatitis, gastritis, and may lead to other complications. Also avoid any NSAIDs like ibuprofen, Aleve, which can also cause injury to your liver. Limit Tylenol to less than 2 g/day. Discharge Attestations Time Spent in Discharge Care*: greater than 30 min Quality Metrics Clinical Quality Measures During this hospital stay, did patient experience: None Coding Level of Care Code Acute [facility] note Diagnoses Acute colitis K52.9 Transaminitis R74.01 Hematochezia K92.1 Nausea and vomiting R11.2 Weight loss R63.4 History of COVID-19 Z86.16 Smoking addiction F17.200 Daily consumption of alcohol Z78.9 Fatty infiltration of liver K76.0
--- NOTE | 2020-12-09 09:13 | PC.NURSE ---
pt to leave ama this am. pt discharge info explained and ama paper signed. pt alert and oriented.
[2020-12-09 09:15] VITALS: BP 144/79; PULSE 68; RESP 16; TEMP 36.6; O2SAT 98
--- NOTE | 2020-12-09 11:14 | PC.RESP ---
Smoking Cessation information sent to patient
[2020-12-14 11:44] LABS: ANCA Interp Negative (Negative)
== END 2020-12-09 09:16 | disposition left against medical advice (07) | DRG 392 ==
LOC: ER 11:45 → MEDSURG 14:10
PROVIDERS: Admitting Provider Internal Medicine; Emergency Provider Family Medicine; PCP Family Medicine; Visit Provider Internal Medicine
DX: K52.9 Noninfective gastroenteritis and colitis, unspecified (principal); Z91.048 Other nonmedicinal substance allergy status; F17.210 Nicotine dependence, cigarettes, uncomplicated; Z86.16 Personal history of COVID-19; K76.0 Fatty (change of) liver, not elsewhere classified; K29.20 Alcoholic gastritis without bleeding; F10.10 Alcohol abuse, uncomplicated; D64.9 Anemia, unspecified; Z53.29 Procedure and treatment not carried out because of patient's decision for other reasons
CPT/HCPCS: 36415; 74177; 76705; 80053; 80074; 80307; 81003; 83516; 83605; 83630; 83690; 85025; 85610; 85651; 86140; 86671; 87493; 87506; 96365; 96367; 96375; 99285; G0378; J0744; J1100; J1170; J1885; J2405; J3490; J7030; Q9967; S0030